=== PATIENT | female | born 1955 | race African-American/Black ===

== ENCOUNTER 2018-10-27 12:12 | Inpatient (IN) ==
[2018-10-27 13:11] LABS: Basophils % 0.5 % (0.0-0.8); Eosinophils # 0.1 10*3/uL (0.0-0.87); Eosinophils % 0.9 % (0.00-10.9); Hematocrit 41.6 VOL% (35.7-47.0); Hemoglobin 13.2 GM/DL (12.0-16.0); Immature Granulocytes % 0.4 %; Immature Granulocytes Absolute 0.02 #; Lymphocytes # 1.8 10*3/uL (1.4-4.0); Lymphocytes % 31.7 % (21.3-54.2); Mean Corpuscular HGB Conc 31.7 GM/DL (32-36); Mean Corpuscular Hemoglobin 29 PG (27-34); Mean Corpuscular Volume 92.2 FL (87-102); Mean Platelet Volume 12.6 FL (9.6-12.0); Monocytes # 0.2 10*3/uL (0.11-0.8); Monocytes % 4.2 % (1.7-12.7); Neutrophils # 3.5 10*3/uL (1.4-7.4); Neutrophils % 62.3 % (38.7-73.9); Platelet Count 180 T/CUMM (130-400); Red Blood Count 4.51 MC/CUMM (3.8-5.5); Red Cell Distribution Width 13.7 % (9.3-17.3); White Blood Count 5.7 T/CUMM (4-12)
[2018-10-27 13:24] LABS: PT Patient Result 10.7 SECS; Partial Thromboplastin Time 24.9 SECS (0-40)
[2018-10-27] MEDS ORDERED: PROMETHAZINE 25 MG TABLET PO PRN (13:33)
[2018-10-27] MEDS ORDERED: POTASSIUM CHLORIDE 20 MEQ TABLET PO PRN (13:33)
[2018-10-27] MEDS ORDERED: DOCUSATE SODIUM 100 MG CAPSULE PO PRN (13:33)
[2018-10-27] MEDS ORDERED: guaiFENesin/DM ER 600-30 MG TABLET PO PRN (13:33)
[2018-10-27] MEDS ORDERED: MAGNESIUM SULF RIDER 4 GM in PREMIX 1 EACH IV PRN (13:33)
[2018-10-27] MEDS ORDERED: MAGNESIUM SULF RIDER 2 GM in PREMIX 1 EACH IV PRN (13:33)
[2018-10-27] MEDS ORDERED: BISACODYL 5 MG TABLET PO PRN (13:33)
[2018-10-27] MEDS ORDERED: ONDANSETRON 4 MG/2 ML VIAL IV PRN (13:33)
[2018-10-27 13:41] LABS: Alanine Aminotransferase 33 U/L (13-56); Albumin 3.5 G/DL (3.4-5.0); Alkaline Phosphatase 102 U/L (45-117); Aspartate Amino Transferase 27 U/L (0-37); Blood Urea Nitrogen 14 MG/DL (7-18); Calcium 8.7 MG/DL (8.5-10.1); Glucose 87 MG/DL (74-106); Osmolality,Calculated 280.3 MOS/KG (273-304); Potassium 3.9 MMOL/L (3.5-5.1); Sodium 141 MMOL/L (136-145); Total Protein 7.7 G/DL (6.4-8.3); Troponin I < 0.015 NG/ML (0.00-0.045)
[2018-10-27] MEDS ORDERED: CARVEDILOL 6.25 MG TABLET PO SCH (21:00)
[2018-10-27] MEDS: CARVEDILOL 25 MG TABLET PO SCH (21:32)
[2018-10-28 04:11] LABS: Basophils % 0.6 % (0.0-0.8); Eosinophils # 0.1 10*3/uL (0.0-0.87); Eosinophils % 1.5 % (0.00-10.9); Immature Granulocytes % 0.2 %; Immature Granulocytes Absolute 0.01 #; Lymphocytes # 2.6 10*3/uL (1.4-4.0); Lymphocytes % 47.4 % (21.3-54.2); Mean Corpuscular HGB Conc 31.6 GM/DL (32-36); Mean Corpuscular Hemoglobin 29 PG (27-34); Mean Corpuscular Volume 91.8 FL (87-102); Mean Platelet Volume 12.9 FL (9.6-12.0); Monocytes # 0.4 10*3/uL (0.11-0.8); Monocytes % 7.7 % (1.7-12.7); Neutrophils # 2.3 10*3/uL (1.4-7.4); Neutrophils % 42.6 % (38.7-73.9); Platelet Count 183 T/CUMM (130-400); Red Blood Count 4.14 MC/CUMM (3.8-5.5); Red Cell Distribution Width 13.6 % (9.3-17.3); White Blood Count 5.4 T/CUMM (4-12)
[2018-10-28 04:33] LABS: Alanine Aminotransferase 25 U/L (13-56); Albumin 3.3 G/DL (3.4-5.0); Alkaline Phosphatase 92 U/L (45-117); Aspartate Amino Transferase 17 U/L (0-37); Bilirubin,Total < 0.39 MG/DL (0.2-1.0); Blood Urea Nitrogen 18 MG/DL (7-18); Calcium 8.5 MG/DL (8.5-10.1); Glucose 85 MG/DL (74-106); Osmolality,Calculated 283.1 MOS/KG (273-304); Sodium 142 MMOL/L (136-145); Total Protein 6.4 G/DL (6.4-8.3)
[2018-10-28] MEDS ORDERED: LISINOPRIL 20 MG TABLET PO SCH (09:00)
[2018-10-28] MEDS: ASPIRIN EC 81 MG TABLET PO SCH (09:29)
[2018-10-28] MEDS: LISINOPRIL 20 MG TABLET PO SCH ×2 (09:29→20:54)
[2018-10-28] MEDS: PANTOPRAZOLE 40 MG TABLET PO SCH (09:29)
[2018-10-28] MEDS: CARVEDILOL 25 MG TABLET PO SCH ×2 (09:29→20:54)
[2018-10-28] MEDS: ROSUVASTATIN 10 MG TABLET PO SCH (09:29)
[2018-10-28] MEDS: ZALEPLON 5 MG CAPSULE PO PRN (20:54)
[2018-10-29 04:43] LABS: Calcium 8.5 MG/DL (8.5-10.1); Osmolality,Calculated 283.1 MOS/KG (273-304)
[2018-10-29] MEDS: LISINOPRIL 20 MG TABLET PO SCH ×2 (09:41→20:06)
[2018-10-29] MEDS: ASPIRIN EC 81 MG TABLET PO SCH (09:41)
[2018-10-29] MEDS: ROSUVASTATIN 10 MG TABLET PO SCH (09:41)
[2018-10-29] MEDS: PANTOPRAZOLE 40 MG TABLET PO SCH (09:41)
[2018-10-29] MEDS: CARVEDILOL 25 MG TABLET PO SCH ×2 (09:41→20:06)
[2018-10-29] MEDS: ZALEPLON 5 MG CAPSULE PO PRN (22:17)
[2018-10-30 04:43] LABS: Calcium 8.8 MG/DL (8.5-10.1); Osmolality,Calculated 280.3 MOS/KG (273-304)
[2018-10-30] MEDS: LISINOPRIL 20 MG TABLET PO SCH ×2 (09:16→21:02)
[2018-10-30] MEDS: ROSUVASTATIN 10 MG TABLET PO SCH (09:16)
[2018-10-30] MEDS: ASPIRIN EC 81 MG TABLET PO SCH (09:16)
[2018-10-30] MEDS: CARVEDILOL 25 MG TABLET PO SCH ×2 (09:16→21:02)
[2018-10-30] MEDS: amLODIPine 5 MG TABLET PO SCH (09:16)
[2018-10-30] MEDS: PANTOPRAZOLE 40 MG TABLET PO SCH (09:16)
[2018-10-30] MEDS ORDERED: DIAZEPAM 5 MG TABLET PO ONE (09:30)
[2018-10-30] MEDS ORDERED: MAGNESIUM SULF RIDER 2 GM in PREMIX 1 EACH IV PRN (09:30)
[2018-10-30] MEDS ORDERED: diphenhydrAMINE CAP 25 MG CAPSULE PO ONE (09:30)
[2018-10-30] MEDS ORDERED: POTASSIUM CHLORIDE RIDER 10 MEQ in PREMIX 1 EACH IV PRN (09:30)
[2018-10-30] MEDS ORDERED: MIDAZOLAM 2 MG/2 ML VIAL ONE (14:27)
[2018-10-30] MEDS ORDERED: fentaNYL 100 MCG/2 ML VIAL ONE (14:27)
[2018-10-30] MEDS ORDERED: LIDOCAINE 1% 20 ML VIAL ONE (14:27)
[2018-10-30] MEDS ORDERED: NIFEdipine 10 MG CAPSULE PO ONE (14:42)
[2018-10-30] MEDS ORDERED: HEPARIN 5,000 UNIT/1 ML VIAL ONE (14:43)
[2018-10-30] MEDS: SODIUM CHLORIDE 0.45% 1,000 ML IV SCH ×2 (17:29→21:02)
[2018-10-30] MEDS: diphenhydrAMINE CAP 25 MG CAPSULE PO PRN (23:16)
[2018-10-31 05:00] LABS: Basophils % 0.5 % (0.0-0.8); Eosinophils % 0.7 % (0.00-10.9); Hematocrit 39.1 VOL% (35.7-47.0); Hemoglobin 12.4 GM/DL (12.0-16.0); Immature Granulocytes % 0.2 %; Immature Granulocytes Absolute 0.01 #; Lymphocytes # 2.5 10*3/uL (1.4-4.0); Lymphocytes % 42.5 % (21.3-54.2); Mean Corpuscular HGB Conc 31.7 GM/DL (32-36); Mean Corpuscular Hemoglobin 29 PG (27-34); Mean Corpuscular Volume 91.4 FL (87-102); Mean Platelet Volume 12.7 FL (9.6-12.0); Monocytes # 0.4 10*3/uL (0.11-0.8); Monocytes % 6.2 % (1.7-12.7); Neutrophils % 49.9 % (38.7-73.9); Platelet Count 169 T/CUMM (130-400); Red Blood Count 4.28 MC/CUMM (3.8-5.5); Red Cell Distribution Width 13.8 % (9.3-17.3); White Blood Count 5.9 T/CUMM (4-12)
[2018-10-31] MEDS: SODIUM CHLORIDE 0.45% 1,000 ML IV SCH (05:04)
[2018-10-31 05:18] LABS: Calcium 8.7 MG/DL (8.5-10.1); Osmolality,Calculated 280.3 MOS/KG (273-304); Osmolality,Calculated 282.1 MOS/KG (273-304); Potassium 4.1 MMOL/L (3.5-5.1); Potassium 4.2 MMOL/L (3.5-5.1)
[2018-10-31] MEDS ORDERED: HEPARIN/NACL 0.9% 2 UNITS/ML 500 ML IV ONE (10:02)
[2018-10-31] MEDS ORDERED: LIDOCAINE 1% 20 ML VIAL ONE (10:02)
[2018-10-31] MEDS ORDERED: ISOPROTERENOL 1 MG/5 ML VIAL IV ONE (10:52)
[2018-10-31] MEDS ORDERED: ACETAMINOPHEN 325 MG TABLET PO PRN (11:38)
[2018-10-31] MEDS ORDERED: HEPARIN 10,000 UNIT/10 ML VIAL ONE (12:10)
[2018-10-31] MEDS ORDERED: MIDAZOLAM 2 MG/2 ML VIAL ONE (12:10)
[2018-10-31] MEDS ORDERED: PROPOFOL 1,000 MG/100 ML BOTTLE IV ONE (12:11)
[2018-10-31] MEDS: ROSUVASTATIN 10 MG TABLET PO SCH (12:28)
[2018-10-31] MEDS: DILTIAZEM CD 120 MG CAPSULE PO SCH (12:28)
[2018-10-31] MEDS: LISINOPRIL 20 MG TABLET PO SCH ×2 (12:28→21:36)
[2018-10-31] MEDS: PANTOPRAZOLE 40 MG TABLET PO SCH (12:28)
[2018-10-31] MEDS: CARVEDILOL 25 MG TABLET PO SCH ×2 (12:28→21:36)
[2018-10-31] MEDS: ASPIRIN EC 81 MG TABLET PO SCH (12:28)
[2018-10-31] MEDS: amLODIPine 5 MG TABLET PO SCH (15:25)
[2018-10-31] MEDS ORDERED: ENOXAPARIN 40 MG/0.4 ML SYRINGE SUBCUT SCH (21:00)
[2018-10-31] MEDS: diphenhydrAMINE CAP 25 MG CAPSULE PO PRN (21:36)
[2018-11-01 04:55] LABS: Basophils % 0.4 % (0.0-0.8); Eosinophils # 0.1 10*3/uL (0.0-0.87); Eosinophils % 1.6 % (0.00-10.9); Hematocrit 38.2 VOL% (35.7-47.0); Hemoglobin 12.1 GM/DL (12.0-16.0); Lymphocytes # 2.6 10*3/uL (1.4-4.0); Lymphocytes % 47.5 % (21.3-54.2); Mean Corpuscular HGB Conc 31.7 GM/DL (32-36); Mean Corpuscular Hemoglobin 29 PG (27-34); Mean Corpuscular Volume 92.9 FL (87-102); Monocytes # 0.4 10*3/uL (0.11-0.8); Monocytes % 6.5 % (1.7-12.7); Neutrophils # 2.4 10*3/uL (1.4-7.4); Platelet Count 150 T/CUMM (130-400); Red Blood Count 4.11 MC/CUMM (3.8-5.5); Red Cell Distribution Width 13.6 % (9.3-17.3); White Blood Count 5.5 T/CUMM (4-12)
[2018-11-01 05:07] LABS: Calcium 8.2 MG/DL (8.5-10.1); Osmolality,Calculated 279.3 MOS/KG (273-304); Potassium 3.7 MMOL/L (3.5-5.1)
[2018-11-01] MEDS: CARVEDILOL 25 MG TABLET PO SCH (10:16)
[2018-11-01] MEDS: ROSUVASTATIN 10 MG TABLET PO SCH (10:16)
[2018-11-01] MEDS: LISINOPRIL 20 MG TABLET PO SCH (10:16)
[2018-11-01] MEDS: DILTIAZEM CD 120 MG CAPSULE PO SCH (10:16)
[2018-11-01] MEDS: PANTOPRAZOLE 40 MG TABLET PO SCH (10:19)
[2018-11-01] MEDS: ASPIRIN EC 81 MG TABLET PO SCH (10:19)
[2018-11-01 12:12] VITALS: BP 141/72
== END 2018-11-01 14:00 | disposition home or self-care (01) | DRG 274 ==
LOC: N.ED 12:12 → N.EDINP 13:33 → N.TELES 14:17
PROVIDERS: ADMIT Internal Medicine Interventional Cardiology; ATTEND Internal Medicine Interventional Cardiology
PROC: CLCCHCL (ICD-10-PCS; 2018-10-30 14:15)

== ENCOUNTER 2020-10-08 10:36 | Inpatient (IN) ==
[2020-10-08] MEDS ORDERED: SODIUM CHLORIDE 0.9% 1,000 ML IV STA (11:22)
[2020-10-08 11:32] LABS: Basophils % 0.6 % (0.0-0.8); Eosinophils # 0.1 10*3/uL (0.0-0.87); Eosinophils % 1.4 % (0.00-10.9); Hematocrit 40.9 VOL% (35.7-47.0); Hemoglobin 13.5 GM/DL (12.0-16.0); Immature Granulocytes % 0.2 %; Immature Granulocytes Absolute 0.01 #; Lymphocytes # 2.1 10*3/uL (1.4-4.0); Lymphocytes % 31.8 % (21.3-54.2); Mean Corpuscular Volume 89.5 FL (87-102); Mean Platelet Volume 12.2 FL (9.6-12.0); Monocytes % 6.7 % (1.7-12.7); Neutrophils % 59.3 % (38.7-73.9); Platelet Count 236 T/CUMM (130-400); Red Blood Count 4.57 MC/CUMM (3.8-5.5); Red Cell Distribution Width 14.2 % (9.3-17.3); White Blood Count 6.5 T/CUMM (4-12)
[2020-10-08 11:48] LABS: Albumin 3.8 G/DL (3.4-5.0); Bilirubin,Total 0.4 MG/DL (0.2-1.0); Calcium 9.2 MG/DL (8.5-10.1); Osmolality,Calculated 280.4 MOS/KG (273-304); Potassium 3.6 MMOL/L (3.5-5.1); Total Protein 7.8 G/DL (6.4-8.3)
[2020-10-08] MEDS ORDERED: ALUMINUM/MAGNES/SIMETH MAX STR 30 ML UDCUP PO PRN (12:02)
[2020-10-08] MEDS ORDERED: BISACODYL 5 MG TABLET PO PRN (12:02)
[2020-10-08] MEDS ORDERED: PROMETHAZINE 25 MG TABLET PO PRN (12:02)
[2020-10-08] MEDS ORDERED: ACETAMINOPHEN 325 MG TABLET PO PRN (12:02)
[2020-10-08] MEDS ORDERED: guaiFENesin/DM ER 600-30 MG TABLET PO PRN (12:02)
[2020-10-08] MEDS ORDERED: diphenhydrAMINE CAP 25 MG CAPSULE PO PRN (12:02)
[2020-10-08] MEDS ORDERED: MAGNESIUM SULF RIDER 2 GM in PREMIX 1 EACH IV PRN (12:02)
[2020-10-08] MEDS ORDERED: POTASSIUM CHLORIDE 20 MEQ TABLET PO PRN (12:02)
[2020-10-08] MEDS ORDERED: MAGNESIUM SULF RIDER 4 GM in PREMIX 1 EACH IV PRN (12:02)
[2020-10-08] MEDS ORDERED: ONDANSETRON 4 MG/2 ML VIAL IV PRN (12:02)
[2020-10-08] MEDS ORDERED: ZALEPLON 5 MG CAPSULE PO PRN (12:02)
[2020-10-08] MEDS ORDERED: DOCUSATE SODIUM 100 MG CAPSULE PO PRN (12:02)
[2020-10-08] MEDS ORDERED: SOTALOL 80 MG TABLET PO STA (12:05)
[2020-10-08 12:07] LABS: Bacteria,Urine Occasional /HPF (Few); Bilirubin,Urine Negative (Negative); Blood, Urine Small mg/dL (Negative); Glucose,Urine (UA) Negative (Negative); Hyaline Casts,Urine 3 /LPF (0-3); Ketones,Urine Negative (Negative); Mucus,Urine Occasional /LPF (Occasional); Nitrite,Urine Negative (Negative); Protein,Urine Negative; RBC,Urine 3 /HPF (0-4); Squamous Epithelial Cell,Urine Moderate /HPF (0-10); Urine Appearance Slightly Hazy (Clear); Urine Color Yellow (Yellow); Urine Urobilinogen < 2.0 EU/DL (0.2-1.0); WBC,Urine 3 /HPF (0-6)
[2020-10-08 12:31] LABS: Barbiturates Screen,Urine Negative (Negative); Benzodiazepines Screen,Urine Negative (Negative); Cannabinoid Screen,Urine Negative (Negative); Opiate Screen,Urine Negative (Negative); Phencyclidine Screen,Urine Negative (Negative)
[2020-10-08] MEDS ORDERED: POTASSIUM CHLORIDE 20 MEQ TABLET PO STA (12:46)
[2020-10-08] MEDS: ENOXAPARIN 40 MG/0.4 ML SYRINGE SUBCUT SCH (13:30)
[2020-10-08] MEDS: ROSUVASTATIN 10 MG TABLET PO SCH (17:45)
[2020-10-08] MEDS: traZODone 50 MG TABLET PO SCH (21:49)
[2020-10-08] MEDS: SOTALOL 80 MG TABLET PO SCH (22:42)
[2020-10-09 05:11] LABS: Basophils % 0.7 % (0.0-0.8); Eosinophils # 0.1 10*3/uL (0.0-0.87); Eosinophils % 2.6 % (0.00-10.9); Hematocrit 35.4 VOL% (35.7-47.0); Hemoglobin 11.6 GM/DL (12.0-16.0); Immature Granulocytes % 0.2 %; Immature Granulocytes Absolute 0.01 #; Lymphocytes # 2.1 10*3/uL (1.4-4.0); Lymphocytes % 47.9 % (21.3-54.2); Mean Corpuscular HGB Conc 32.8 GM/DL (32-36); Mean Corpuscular Volume 89.8 FL (87-102); Mean Platelet Volume 11.8 FL (9.6-12.0); Monocytes % 8.1 % (1.7-12.7); Neutrophils % 40.5 % (38.7-73.9); Platelet Count 167 T/CUMM (130-400); Red Blood Count 3.94 MC/CUMM (3.8-5.5); Red Cell Distribution Width 14.1 % (9.3-17.3); White Blood Count 4.3 T/CUMM (4-12)
[2020-10-09 05:28] LABS: Calcium 8.3 MG/DL (8.5-10.1); Potassium 3.7 MMOL/L (3.5-5.1)
[2020-10-09] MEDS: SOTALOL 80 MG TABLET PO SCH (09:53)
[2020-10-09] MEDS: ASPIRIN EC 81 MG TABLET PO SCH (09:53)
[2020-10-09] MEDS: PANTOPRAZOLE 40 MG TABLET PO SCH (09:54)
[2020-10-09] MEDS: ENOXAPARIN 40 MG/0.4 ML SYRINGE SUBCUT SCH (13:08)
[2020-10-09] MEDS: ROSUVASTATIN 10 MG TABLET PO SCH (17:59)
[2020-10-09] MEDS: traZODone 50 MG TABLET PO SCH (20:40)
[2020-10-10] MEDS: SOTALOL 80 MG TABLET PO SCH ×2 (00:08→10:10)
[2020-10-10 08:00] VITALS: BP 144/73
[2020-10-10 08:36] LABS: Calcium 9.1 MG/DL (8.5-10.1); Osmolality,Calculated 281.1 MOS/KG (273-304); Potassium 4.9 MMOL/L (3.5-5.1)
[2020-10-10] MEDS: ASPIRIN EC 81 MG TABLET PO SCH (10:10)
[2020-10-10] MEDS: PANTOPRAZOLE 40 MG TABLET PO SCH (10:10)
== END 2020-10-10 11:45 | disposition home or self-care (01) | DRG 312 ==
LOC: N.ED 10:36 → N.EDINP 10:36 → N.TELEN 14:45
PROVIDERS: ADMIT Internal Medicine Cardiovascular Disease; ATTEND Internal Medicine Cardiovascular Disease

== ENCOUNTER 2021-11-12 19:32 | Inpatient (IN) ==
[2021-11-12] MEDS ORDERED: FUROSEMIDE 100 MG/10 ML VIAL IV STA (19:59)
[2021-11-12] MEDS ORDERED: NITROGLYCERIN 2% OINT 1 INCH/GM PACK TOP STA (19:59)
[2021-11-12] MEDS ORDERED: MORPHINE 2 MG/1 ML SYRINGE IV STA (19:59)
[2021-11-12] MEDS ORDERED: ALBUTEROL/IPRATROPIUM 3 ML NEB RESP TX STA (19:59)
[2021-11-12] MEDS ORDERED: ASPIRIN 325 MG TABLET PO STA (19:59)
[2021-11-12] MEDS ORDERED: ONDANSETRON 4 MG/2 ML VIAL IV STA (19:59)
[2021-11-12] MEDS ORDERED: hydrALAZINE 20 MG/1 ML VIAL IV STA (20:01)
[2021-11-12 20:19] LABS: Basophils # 0.1 10*3/uL (0.0-0.2); Basophils % 0.6 % (0.0-0.8); Eosinophils # 0.2 10*3/uL (0.0-0.87); Eosinophils % 1.3 % (0.00-10.9); Hematocrit 44.6 VOL% (35.7-47.0); Immature Granulocytes % 0.3 %; Immature Granulocytes Absolute 0.04 #; Lymphocytes # 6.1 10*3/uL (1.4-4.0); Mean Corpuscular HGB Conc 29.1 GM/DL (32-36); Mean Corpuscular Volume 92.9 FL (87-102); Mean Platelet Volume 12.9 FL (9.6-12.0); Monocytes % 5.2 % (1.7-12.7); Neutrophils % 43.6 % (38.7-73.9); Platelet Count 208 T/CUMM (130-400); Red Cell Distribution Width 14.5 % (9.3-17.3); White Blood Count 12.5 T/CUMM (4-12)
[2021-11-12] MEDS ORDERED: methylPREDNISolone SOD SUC 125 MG/2 ML VIAL IV STA (20:25)
[2021-11-12 20:33] LABS: INR 1.1; PT Patient Result 12.4 SECS (10.5-12.0); Partial Thromboplastin Time 24.5 SECS (23.8-32.1)
[2021-11-12 20:44] LABS: Albumin 3.7 G/DL (3.4-5.0); Bilirubin,Total 0.4 MG/DL (0.20-1.00); Calcium 8.9 MG/DL (8.5-10.1); Osmolality,Calculated 286.4 MOS/KG (273-304); Potassium 4.1 MMOL/L (3.5-5.1); Total Protein 6.8 G/DL (6.4-8.2)
[2021-11-12] MEDS ORDERED: PIPERACILLIN/TAZOBACTAM 3,375 MG in SODIUM CHLORIDE 0.9% 100 ML IV STA (22:15)
[2021-11-12] MEDS ORDERED: METOPROLOL SUCCINATE XL 25 MG TABLET PO ONE (22:36)
[2021-11-12] MEDS ORDERED: METOPROLOL TARTRATE 25 MG TABLET PO STA (22:37)
[2021-11-12] MEDS ORDERED: ONDANSETRON 4 MG/2 ML VIAL IV PRN (23:34)
[2021-11-12] MEDS ORDERED: ACETAMINOPHEN 325 MG TABLET PO PRN (23:34)
[2021-11-12] MEDS ORDERED: guaiFENesin/DM ER 600-30 MG TABLET PO PRN (23:34)
[2021-11-12] MEDS ORDERED: NICOTINE 21 MG/24 HR PATCH TRANSDERM PRN (23:34)
[2021-11-12] MEDS ORDERED: MORPHINE 2 MG/1 ML SYRINGE IV PRN (23:34)
[2021-11-12] MEDS ORDERED: ZALEPLON 5 MG CAPSULE PO PRN (23:34)
[2021-11-12] MEDS ORDERED: diphenhydrAMINE CAP 25 MG CAPSULE PO PRN (23:34)
[2021-11-12] MEDS ORDERED: DOCUSATE SODIUM 100 MG CAPSULE PO PRN (23:34)
[2021-11-12] MEDS ORDERED: hydrALAZINE 20 MG/1 ML VIAL IV PRN (23:34)
[2021-11-12] MEDS ORDERED: GLUCAGON 1 MG VIAL IM PRN (23:34)
[2021-11-12] MEDS ORDERED: DEXTROSE 10% 250 ML BAG IV PRN (23:53)
[2021-11-13] MEDS: FUROSEMIDE 100 MG/10 ML VIAL IV SCH ×2 (00:01→11:26)
[2021-11-13] MEDS: HEPARIN 5,000 UNIT/1 ML VIAL SUBCUT SCH ×3 (00:01→13:33)
[2021-11-13] MEDS: VANCOMYCIN INJ 1,250 MG in SODIUM CHLORIDE 0.9% 250 ML IV SCH ×2 (04:03→16:23)
[2021-11-13] MEDS: PIPERACILLIN/TAZOBACTAM 3,375 MG in SODIUM CHLORIDE 0.9% 100 ML IV SCH ×3 (05:08→22:46)
[2021-11-13] MEDS ORDERED: AMIODARONE INJ 150 MG in DEXTROSE 5% 100 ML IV ONE (06:06)
[2021-11-13] MEDS ORDERED: AMIODARONE INJ 450 MG in DEXTROSE 5% 241 ML IV SCH (06:30)
[2021-11-13 07:12] LABS: Basophils % 0.2 % (0.0-0.8); Eosinophils % 0.2 % (0.00-10.9); Hematocrit 40.9 VOL% (35.7-47.0); Hemoglobin 12.7 GM/DL (12.0-16.0); Immature Granulocytes % 0.4 %; Immature Granulocytes Absolute 0.04 #; Lymphocytes % 19.2 % (21.3-54.2); Mean Corpuscular HGB Conc 31.1 GM/DL (32-36); Mean Corpuscular Volume 87.8 FL (87-102); Mean Platelet Volume 12.3 FL (9.6-12.0); Monocytes % 6.2 % (1.7-12.7); Neutrophils % 73.8 % (38.7-73.9); Platelet Count 202 T/CUMM (130-400); Red Blood Count 4.66 MC/CUMM (3.8-5.5); Red Cell Distribution Width 14.6 % (9.3-17.3); White Blood Count 10.4 T/CUMM (4-12)
[2021-11-13 07:27] LABS: Calcium 8.8 MG/DL (8.5-10.1); Osmolality,Calculated 275.7 MOS/KG (273-304); Potassium 3.5 MMOL/L (3.5-5.1)
[2021-11-13] MEDS ORDERED: SOTALOL 80 MG TABLET PO SCH ×2 (09:00→12:39)
[2021-11-13] MEDS: ASPIRIN EC 81 MG TABLET PO SCH (10:32)
[2021-11-13] MEDS: PANTOPRAZOLE 40 MG TABLET PO SCH (10:32)
[2021-11-13] MEDS ORDERED: SOTALOL 80 MG TABLET PO ONE (13:13)
[2021-11-13] MEDS ORDERED: SACUBITRIL/VALSARTAN 49-51 MG TABLET PO ONE (13:50)
[2021-11-13] MEDS ORDERED: ROSUVASTATIN 10 MG TABLET PO SCH (17:00)
[2021-11-13] MEDS: ASCORBIC ACID 500 MG TABLET PO SCH (20:27)
[2021-11-13] MEDS: APIXABAN 2.5 MG TABLET PO SCH (20:27)
[2021-11-13] MEDS: SOTALOL 80 MG TABLET PO SCH (20:27)
[2021-11-13] MEDS: SACUBITRIL/VALSARTAN 49-51 MG TABLET PO SCH (20:30)
[2021-11-14] MEDS: VANCOMYCIN INJ 1,250 MG in SODIUM CHLORIDE 0.9% 250 ML IV SCH (03:55)
[2021-11-14 06:19] LABS: Albumin 3.2 G/DL (3.4-5.0); Calcium 8.9 MG/DL (8.5-10.1); Osmolality,Calculated 279.3 MOS/KG (273-304); Potassium 3.4 MMOL/L (3.5-5.1); Total Protein 6.9 G/DL (6.4-8.2)
[2021-11-14] MEDS: FUROSEMIDE 100 MG/10 ML VIAL IV SCH (06:45)
[2021-11-14] MEDS: PIPERACILLIN/TAZOBACTAM 3,375 MG in SODIUM CHLORIDE 0.9% 100 ML IV SCH (06:50)
[2021-11-14] MEDS ORDERED: ZINC SULFATE 220 MG CAPSULE PO SCH (09:00)
[2021-11-14] MEDS ORDERED: CHOLECALCIFEROL 1,000 UNIT TABLET PO SCH (09:00)
[2021-11-14] MEDS: ASPIRIN EC 81 MG TABLET PO SCH (09:51)
[2021-11-14] MEDS: SOTALOL 80 MG TABLET PO SCH (09:51)
[2021-11-14] MEDS: ASCORBIC ACID 500 MG TABLET PO SCH (09:52)
[2021-11-14] MEDS: APIXABAN 2.5 MG TABLET PO SCH (09:52)
[2021-11-14] MEDS: PANTOPRAZOLE 40 MG TABLET PO SCH (09:52)
[2021-11-14] MEDS: SACUBITRIL/VALSARTAN 49-51 MG TABLET PO SCH (09:52)
[2021-11-14] MEDS ORDERED: POTASSIUM CHLORIDE 20 MEQ TABLET PO ONE (10:16)
[2021-11-14 12:44] VITALS: BP 121/80
== END 2021-11-14 14:40 | disposition home or self-care (01) | DRG 177 ==
LOC: EDBD → EDUNIT# → N.ED 19:32 → N.EDINP 23:34 → SUATTDRO 23:34 → N.5E 11-13 01:14 → N.TELES 11-13 05:56
PROVIDERS: ADMIT Internal Medicine; ATTEND Emergency Medicine

== ENCOUNTER 2021-12-07 18:40 | Inpatient (IN) ==
[2021-12-07] MEDS ORDERED: ADENOSINE 6 MG/2 ML VIAL IV STA ×2 (19:25→19:28)
[2021-12-07] MEDS ORDERED: ADENOSINE 6 MG/2 ML VIAL ONE (19:26)
[2021-12-07] MEDS ORDERED: MIDAZOLAM 2 MG/2 ML VIAL IV STA (19:30)
[2021-12-07] MEDS ORDERED: MIDAZOLAM 10 MG/2 ML VIAL ONE (19:32)
[2021-12-07] MEDS ORDERED: DILTIAZEM 25 MG/5 ML VIAL IV ONE ×2 (19:39→19:53)
[2021-12-07] MEDS ORDERED: DILTIAZEM 50 MG/10 ML VIAL IV STA (19:40)
[2021-12-07] MEDS ORDERED: METOPROLOL TARTRATE 5 MG/5 ML VIAL IV ONE (19:40)
[2021-12-07] MEDS ORDERED: AMIODARONE 150 MG/3 ML VIAL ONE (19:40)
[2021-12-07 19:41] LABS: Basophils # 0.1 10*3/uL (0.0-0.2); Basophils % 0.5 % (0.0-0.8); Eosinophils # 0.1 10*3/uL (0.0-0.87); Eosinophils % 1.2 % (0.00-10.9); Hematocrit 46.8 VOL% (35.7-47.0); Hemoglobin 14.7 GM/DL (12.0-16.0); Immature Granulocytes % 0.3 %; Immature Granulocytes Absolute 0.03 #; Lymphocytes # 5.1 10*3/uL (1.4-4.0); Lymphocytes % 49.6 % (21.3-54.2); Mean Corpuscular HGB Conc 31.4 GM/DL (32-36); Mean Corpuscular Volume 88.6 FL (87-102); Mean Platelet Volume 13.3 FL (9.6-12.0); Monocytes % 7.1 % (1.7-12.7); Neutrophils % 41.3 % (38.7-73.9); Platelet Count 221 T/CUMM (130-400); Red Blood Count 5.28 MC/CUMM (3.8-5.5); Red Cell Distribution Width 15.3 % (9.3-17.3); White Blood Count 10.3 T/CUMM (4-12)
[2021-12-07] MEDS ORDERED: DILTIAZEM 100 MG VIAL.ADD IV ONE (19:49)
[2021-12-07] MEDS: DILTIAZEM INJ 100 MG in SODIUM CHLORIDE 0.9% 100 ML IV SCH (20:00)
[2021-12-07 20:05] LABS: Albumin 4.4 G/DL (3.4-5.0); Bilirubin,Total 0.7 MG/DL (0.20-1.00); Calcium 9.5 MG/DL (8.5-10.1); Osmolality,Calculated 277.5 MOS/KG (273-304); Potassium 3.4 MMOL/L (3.5-5.1); Total Protein 7.8 G/DL (6.4-8.2)
[2021-12-07] MEDS ORDERED: ENOXAPARIN 100 MG/ML SYRINGE SUBCUT STA (20:19)
[2021-12-07 20:41] LABS: Lymphocytes 50 % (20-55); Segmented Neutrophils 43 % (50-85); Total Cells Counted 100
[2021-12-07 20:46] LABS: Burr Cells Slight; Microcytosis Slight; Platelet Estimate Normal
[2021-12-07] MEDS ORDERED: MAGNESIUM SULF RIDER 4 GM/100 ML PREMIX IV PRN (21:33)
[2021-12-07] MEDS ORDERED: MAGNESIUM SULF RIDER 2 GM/50 ML PREMIX IV PRN (21:33)
[2021-12-07] MEDS ORDERED: ONDANSETRON 4 MG/2 ML VIAL IV PRN (21:33)
[2021-12-07] MEDS ORDERED: MORPHINE 4 MG/1 ML VIAL IV PRN (21:37)
[2021-12-07] MEDS: SODIUM CHLORIDE 0.9% 1,000 ML IV SCH (23:55)
[2021-12-08 03:46] LABS: Basophils % 0.5 % (0.0-0.8); Eosinophils # 0.1 10*3/uL (0.0-0.87); Eosinophils % 0.9 % (0.00-10.9); Hematocrit 41.2 VOL% (35.7-47.0); Hemoglobin 12.9 GM/DL (12.0-16.0); Immature Granulocytes % 0.3 %; Immature Granulocytes Absolute 0.02 #; Lymphocytes # 2.1 10*3/uL (1.4-4.0); Lymphocytes % 37.4 % (21.3-54.2); Mean Corpuscular HGB Conc 31.3 GM/DL (32-36); Mean Corpuscular Volume 87.1 FL (87-102); Mean Platelet Volume 12.1 FL (9.6-12.0); Monocytes % 7.9 % (1.7-12.7); Platelet Count 166 T/CUMM (130-400); Red Blood Count 4.73 MC/CUMM (3.8-5.5); Red Cell Distribution Width 15.1 % (9.3-17.3); White Blood Count 5.7 T/CUMM (4-12)
[2021-12-08 04:19] LABS: Albumin 3.4 G/DL (3.4-5.0); Bilirubin,Total 0.6 MG/DL (0.20-1.00); Calcium 8.7 MG/DL (8.5-10.1); Osmolality,Calculated 280.1 MOS/KG (273-304); Potassium 3.5 MMOL/L (3.5-5.1); Risk Ratio 2.02; Thyroid Stimulating Hormone 4.02 uIU/ml (0.358-3.74); Total Protein 6.8 G/DL (6.4-8.2); VLDL Cholesterol 10.2 MG/DL
[2021-12-08] MEDS ORDERED: POTASSIUM CHLORIDE 20 MEQ TABLET PO PRN (05:46)
[2021-12-08] MEDS ORDERED: MAGNESIUM SULF RIDER 2 GM/50 ML PREMIX IV ONE (06:28)
[2021-12-08] MEDS: PANTOPRAZOLE 40 MG TABLET PO SCH (08:18)
[2021-12-08] MEDS ORDERED: POTASSIUM CHLORIDE 20 MEQ TABLET PO ONE (09:16)
[2021-12-08] MEDS ORDERED: PYRIDOXINE 100 MG TABLET PO SCH (09:30)
[2021-12-08] MEDS ORDERED: SACUBITRIL/VALSARTAN 49-51 MG TABLET PO ONE (09:42)
[2021-12-08] MEDS ORDERED: DILTIAZEM 50 MG/10 ML VIAL IV ONE ×2 (09:50→09:53)
[2021-12-08] MEDS: METOPROLOL TARTRATE 50 MG TABLET PO SCH ×2 (09:56→21:02)
[2021-12-08] MEDS: ASPIRIN EC 81 MG TABLET PO SCH (09:57)
[2021-12-08] MEDS: ASCORBIC ACID 500 MG TABLET PO SCH ×2 (09:57→20:02)
[2021-12-08] MEDS: APIXABAN 2.5 MG TABLET PO SCH ×2 (09:57→20:02)
[2021-12-08] MEDS: FUROSEMIDE 40 MG TABLET PO SCH (09:57)
[2021-12-08] MEDS: VERAPAMIL SR 120 MG TABLET PO SCH ×2 (09:57→20:02)
[2021-12-08] MEDS: CHOLECALCIFEROL 1,000 UNIT TABLET PO SCH (09:57)
[2021-12-08] MEDS ORDERED: PYRIDOXINE 50 MG TABLET PO ONE (10:16)
[2021-12-08] MEDS: ROSUVASTATIN 10 MG TABLET PO SCH (17:10)
[2021-12-08] MEDS ORDERED: SACUBITRIL/VALSARTAN 49-51 MG TABLET PO SCH (21:00)
[2021-12-08] MEDS: DILTIAZEM INJ 100 MG in SODIUM CHLORIDE 0.9% 100 ML IV SCH (22:31)
[2021-12-08] MEDS: SODIUM CHLORIDE 0.9% 1,000 ML IV SCH (22:31)
[2021-12-09 05:02] LABS: Basophils % 0.7 % (0.0-0.8); Eosinophils # 0.2 10*3/uL (0.0-0.87); Eosinophils % 3.5 % (0.00-10.9); Hematocrit 42.4 VOL% (35.7-47.0); Immature Granulocytes % 0.2 %; Immature Granulocytes Absolute 0.01 #; Lymphocytes # 2.4 10*3/uL (1.4-4.0); Lymphocytes % 52.2 % (21.3-54.2); Mean Corpuscular HGB Conc 30.7 GM/DL (32-36); Mean Corpuscular Volume 87.8 FL (87-102); Mean Platelet Volume 12.6 FL (9.6-12.0); Monocytes % 7.6 % (1.7-12.7); Neutrophils % 35.8 % (38.7-73.9); Platelet Count 182 T/CUMM (130-400); Red Blood Count 4.83 MC/CUMM (3.8-5.5); Red Cell Distribution Width 15.2 % (9.3-17.3); White Blood Count 4.6 T/CUMM (4-12)
[2021-12-09 05:21] LABS: Calcium 8.8 MG/DL (8.5-10.1); Osmolality,Calculated 276.4 MOS/KG (273-304); Potassium 3.6 MMOL/L (3.5-5.1)
[2021-12-09 05:38] LABS: Eosinophils 1 % (0-10); Lymphocytes 53 % (20-55); Platelet Estimate Normal; Segmented Neutrophils 38 % (50-85); Total Cells Counted 100
[2021-12-09 05:39] LABS: Anisocytosis 1+; Macrocytosis Slight
[2021-12-09] MEDS: SODIUM CHLORIDE 0.9% 1,000 ML IV SCH ×2 (07:30→22:40)
[2021-12-09] MEDS: POTASSIUM CHLORIDE 20 MEQ TABLET PO SCH (09:29)
[2021-12-09] MEDS: VERAPAMIL SR 120 MG TABLET PO SCH ×2 (09:29→22:38)
[2021-12-09] MEDS: ASCORBIC ACID 500 MG TABLET PO SCH ×2 (09:29→22:38)
[2021-12-09] MEDS: SACUBITRIL/VALSARTAN 49-51 MG TABLET PO SCH ×2 (09:29→22:38)
[2021-12-09] MEDS: FUROSEMIDE 40 MG TABLET PO SCH (09:30)
[2021-12-09] MEDS: ASPIRIN EC 81 MG TABLET PO SCH (09:30)
[2021-12-09] MEDS: CHOLECALCIFEROL 1,000 UNIT TABLET PO SCH (09:30)
[2021-12-09] MEDS: APIXABAN 2.5 MG TABLET PO SCH ×2 (09:30→22:38)
[2021-12-09] MEDS: METOPROLOL TARTRATE 25 MG TABLET PO SCH ×2 (09:30→22:40)
[2021-12-09] MEDS: PANTOPRAZOLE 40 MG TABLET PO SCH (09:30)
[2021-12-09] MEDS: PYRIDOXINE 50 MG TABLET PO SCH (10:11)
[2021-12-09] MEDS: ROSUVASTATIN 10 MG TABLET PO SCH (18:23)
[2021-12-10 04:39] LABS: Basophils % 0.8 % (0.0-0.8); Eosinophils # 0.1 10*3/uL (0.0-0.87); Eosinophils % 2.6 % (0.00-10.9); Hemoglobin 12.8 GM/DL (12.0-16.0); Immature Granulocytes % 0.2 %; Immature Granulocytes Absolute 0.01 #; Lymphocytes # 2.5 10*3/uL (1.4-4.0); Lymphocytes % 51.5 % (21.3-54.2); Mean Corpuscular HGB Conc 31.2 GM/DL (32-36); Mean Corpuscular Volume 87.6 FL (87-102); Mean Platelet Volume 12.4 FL (9.6-12.0); Monocytes % 7.5 % (1.7-12.7); Neutrophils % 37.4 % (38.7-73.9); Platelet Count 185 T/CUMM (130-400); Red Blood Count 4.68 MC/CUMM (3.8-5.5); Red Cell Distribution Width 15.1 % (9.3-17.3); White Blood Count 4.9 T/CUMM (4-12)
[2021-12-10 04:59] LABS: Eosinophils 1 % (0-10); Lymphocytes 46 % (20-55); Osmolality,Calculated 278.4 MOS/KG (273-304); Potassium 3.7 MMOL/L (3.5-5.1); Segmented Neutrophils 45 % (50-85); Total Cells Counted 100
[2021-12-10 05:00] LABS: Hypochromia 1+; Microcytosis Slight; Platelet Estimate Adequate
[2021-12-10 08:18] VITALS: BP 123/72
[2021-12-10] MEDS: ASPIRIN EC 81 MG TABLET PO SCH (08:41)
[2021-12-10] MEDS: ASCORBIC ACID 500 MG TABLET PO SCH (08:41)
[2021-12-10] MEDS: POTASSIUM CHLORIDE 20 MEQ TABLET PO SCH (08:41)
[2021-12-10] MEDS: VERAPAMIL SR 120 MG TABLET PO SCH (08:41)
[2021-12-10] MEDS: CHOLECALCIFEROL 1,000 UNIT TABLET PO SCH (08:41)
[2021-12-10] MEDS: APIXABAN 2.5 MG TABLET PO SCH (08:41)
[2021-12-10] MEDS: PANTOPRAZOLE 40 MG TABLET PO SCH (08:42)
[2021-12-10] MEDS: FUROSEMIDE 40 MG TABLET PO SCH (08:42)
[2021-12-10] MEDS: SACUBITRIL/VALSARTAN 49-51 MG TABLET PO SCH (08:58)
[2021-12-10] MEDS ORDERED: METOPROLOL SUCCINATE XL 25 MG TABLET PO SCH (09:00)
[2021-12-10] MEDS: PYRIDOXINE 50 MG TABLET PO SCH (10:36)
== END 2021-12-10 11:06 | disposition home or self-care (01) | DRG 309 ==
LOC: N.ED 18:40 → N.CC 20:57 → N.TELEN 12-09 15:00
PROVIDERS: ADMIT Internal Medicine Cardiovascular Disease; ATTEND Internal Medicine Cardiovascular Disease

== ENCOUNTER 2021-12-10 16:33 | Observation (INO) ==
[2021-12-10 18:13] LABS: Basophils % 0.5 % (0.0-0.8); Eosinophils # 0.1 10*3/uL (0.0-0.87); Eosinophils % 1.1 % (0.00-10.9); Hematocrit 43.8 VOL% (35.7-47.0); Hemoglobin 13.7 GM/DL (12.0-16.0); Immature Granulocytes % 0.2 %; Immature Granulocytes Absolute 0.01 #; Lymphocytes # 1.6 10*3/uL (1.4-4.0); Mean Corpuscular HGB Conc 31.3 GM/DL (32-36); Mean Corpuscular Volume 88.3 FL (87-102); Mean Platelet Volume 13.1 FL (9.6-12.0); Monocytes % 6.5 % (1.7-12.7); Neutrophils % 54.7 % (38.7-73.9); Platelet Count 186 T/CUMM (130-400); Red Blood Count 4.96 MC/CUMM (3.8-5.5); Red Cell Distribution Width 15.3 % (9.3-17.3); White Blood Count 4.4 T/CUMM (4-12)
[2021-12-10 19:17] LABS: Albumin 3.8 G/DL (3.4-5.0); Bilirubin,Total 0.6 MG/DL (0.20-1.00); Calcium 9.1 MG/DL (8.5-10.1); Osmolality,Calculated 278.3 MOS/KG (273-304); Potassium 3.9 MMOL/L (3.5-5.1); Thyroid Stimulating Hormone 4.29 uIU/ml (0.358-3.74); Total Protein 7.2 G/DL (6.4-8.2)
[2021-12-10] MEDS ORDERED: ONDANSETRON 4 MG/2 ML VIAL IV PRN (20:32)
[2021-12-10] MEDS ORDERED: MAGNESIUM SULF RIDER 2 GM/50 ML PREMIX IV PRN (20:32)
[2021-12-10] MEDS ORDERED: MAGNESIUM SULF RIDER 4 GM/100 ML PREMIX IV PRN (20:32)
[2021-12-10] MEDS ORDERED: POTASSIUM CHLORIDE 20 MEQ TABLET PO PRN (20:32)
[2021-12-10] MEDS ORDERED: SODIUM CHLORIDE 0.9% 1,000 ML IV SCH (20:32)
[2021-12-10] MEDS ORDERED: MORPHINE 4 MG/1 ML VIAL IV PRN (20:36)
[2021-12-10] MEDS ORDERED: VERAPAMIL SR 120 MG TABLET PO SCH (21:00)
[2021-12-10] MEDS: ASCORBIC ACID 500 MG TABLET PO SCH (21:33)
[2021-12-10] MEDS: traZODone 50 MG TABLET PO SCH (21:33)
[2021-12-10] MEDS: ROSUVASTATIN 10 MG TABLET PO SCH (21:34)
[2021-12-10] MEDS: SACUBITRIL/VALSARTAN 49-51 MG TABLET PO SCH (21:34)
[2021-12-10] MEDS: APIXABAN 2.5 MG TABLET PO SCH (21:35)
[2021-12-11] MEDS: ALBUTEROL/IPRATROPIUM 3 ML NEB RESP TX SCH ×4 (01:18→19:20)
[2021-12-11 04:48] LABS: Basophils % 0.9 % (0.0-0.8); Eosinophils # 0.1 10*3/uL (0.0-0.87); Eosinophils % 2.4 % (0.00-10.9); Hematocrit 41.1 VOL% (35.7-47.0); Immature Granulocytes % 0.4 %; Immature Granulocytes Absolute 0.02 #; Lymphocytes % 42.3 % (21.3-54.2); Mean Corpuscular HGB Conc 31.6 GM/DL (32-36); Mean Corpuscular Volume 88.8 FL (87-102); Mean Platelet Volume 12.7 FL (9.6-12.0); Monocytes % 8.5 % (1.7-12.7); Neutrophils % 45.5 % (38.7-73.9); Platelet Count 173 T/CUMM (130-400); Red Blood Count 4.63 MC/CUMM (3.8-5.5); Red Cell Distribution Width 15.3 % (9.3-17.3); White Blood Count 4.7 T/CUMM (4-12)
[2021-12-11 05:15] LABS: Risk Ratio 1.88; VLDL Cholesterol 12.2 MG/DL
[2021-12-11] MEDS: ASCORBIC ACID 500 MG TABLET PO SCH ×2 (09:10→21:11)
[2021-12-11] MEDS: VERAPAMIL SR 180 MG TABLET PO SCH ×2 (09:10→21:10)
[2021-12-11] MEDS: CHOLECALCIFEROL 1,000 UNIT TABLET PO SCH (09:11)
[2021-12-11] MEDS: PANTOPRAZOLE 40 MG TABLET PO SCH (09:11)
[2021-12-11] MEDS: METOPROLOL SUCCINATE XL 25 MG TABLET PO SCH (09:11)
[2021-12-11] MEDS: SACUBITRIL/VALSARTAN 49-51 MG TABLET PO SCH ×2 (09:11→21:10)
[2021-12-11] MEDS: ASPIRIN EC 81 MG TABLET PO SCH (09:12)
[2021-12-11] MEDS: APIXABAN 2.5 MG TABLET PO SCH ×2 (09:12→21:10)
[2021-12-11] MEDS: FUROSEMIDE 40 MG TABLET PO SCH (09:14)
[2021-12-11 10:30] LABS: Calcium 9.6 MG/DL (8.5-10.1); Osmolality,Calculated 279.3 MOS/KG (273-304); Potassium 3.5 MMOL/L (3.5-5.1)
[2021-12-11] MEDS: PYRIDOXINE 50 MG TABLET PO SCH (11:13)
[2021-12-11] MEDS: ROSUVASTATIN 10 MG TABLET PO SCH (21:10)
[2021-12-11] MEDS: traZODone 50 MG TABLET PO SCH (21:10)
[2021-12-12] MEDS: ALBUTEROL/IPRATROPIUM 3 ML NEB RESP TX SCH ×4 (00:27→18:55)
[2021-12-12 04:59] LABS: Basophils % 0.7 % (0.0-0.8); Eosinophils # 0.1 10*3/uL (0.0-0.87); Eosinophils % 1.6 % (0.00-10.9); Hematocrit 39.7 VOL% (35.7-47.0); Hemoglobin 12.3 GM/DL (12.0-16.0); Immature Granulocytes % 0.2 %; Immature Granulocytes Absolute 0.01 #; Mean Platelet Volume 11.7 FL (9.6-12.0); Monocytes % 8.2 % (1.7-12.7); Neutrophils % 44.3 % (38.7-73.9); Platelet Count 173 T/CUMM (130-400); Red Blood Count 4.51 MC/CUMM (3.8-5.5); Red Cell Distribution Width 15.4 % (9.3-17.3); White Blood Count 4.5 T/CUMM (4-12)
[2021-12-12 05:19] LABS: Osmolality,Calculated 283.1 MOS/KG (273-304); Potassium 3.5 MMOL/L (3.5-5.1)
[2021-12-12] MEDS: PYRIDOXINE 50 MG TABLET PO SCH (08:16)
[2021-12-12] MEDS: APIXABAN 2.5 MG TABLET PO SCH ×2 (08:17→20:32)
[2021-12-12] MEDS: SACUBITRIL/VALSARTAN 49-51 MG TABLET PO SCH ×2 (08:17→20:32)
[2021-12-12] MEDS: VERAPAMIL SR 180 MG TABLET PO SCH ×2 (08:17→20:32)
[2021-12-12] MEDS: METOPROLOL SUCCINATE XL 25 MG TABLET PO SCH (08:17)
[2021-12-12] MEDS: CHOLECALCIFEROL 1,000 UNIT TABLET PO SCH (08:17)
[2021-12-12] MEDS: PANTOPRAZOLE 40 MG TABLET PO SCH (08:18)
[2021-12-12] MEDS: ASPIRIN EC 81 MG TABLET PO SCH (08:18)
[2021-12-12] MEDS: ASCORBIC ACID 500 MG TABLET PO SCH ×2 (08:20→20:32)
[2021-12-12] MEDS: FUROSEMIDE 40 MG TABLET PO SCH (10:50)
[2021-12-12] MEDS: traZODone 50 MG TABLET PO SCH (20:32)
[2021-12-12] MEDS: ROSUVASTATIN 10 MG TABLET PO SCH (20:32)
[2021-12-13] MEDS: ALBUTEROL/IPRATROPIUM 3 ML NEB RESP TX SCH ×2 (00:45→08:40)
[2021-12-13 05:36] LABS: Basophils % 0.9 % (0.0-0.8); Eosinophils # 0.1 10*3/uL (0.0-0.87); Eosinophils % 2.1 % (0.00-10.9); Hematocrit 39.9 VOL% (35.7-47.0); Hemoglobin 12.5 GM/DL (12.0-16.0); Immature Granulocytes % 0.2 %; Immature Granulocytes Absolute 0.01 #; Lymphocytes # 1.7 10*3/uL (1.4-4.0); Mean Corpuscular HGB Conc 31.3 GM/DL (32-36); Mean Corpuscular Volume 88.7 FL (87-102); Mean Platelet Volume 12.7 FL (9.6-12.0); Monocytes % 7.5 % (1.7-12.7); Neutrophils % 49.3 % (38.7-73.9); Platelet Count 167 T/CUMM (130-400); Red Cell Distribution Width 15.4 % (9.3-17.3); White Blood Count 4.3 T/CUMM (4-12)
[2021-12-13 05:45] LABS: Potassium 3.9 MMOL/L (3.5-5.1)
[2021-12-13] MEDS: APIXABAN 2.5 MG TABLET PO SCH (09:18)
[2021-12-13] MEDS: SACUBITRIL/VALSARTAN 49-51 MG TABLET PO SCH (09:18)
[2021-12-13] MEDS: FUROSEMIDE 40 MG TABLET PO SCH (09:18)
[2021-12-13] MEDS: ASPIRIN EC 81 MG TABLET PO SCH (09:18)
[2021-12-13] MEDS: VERAPAMIL SR 180 MG TABLET PO SCH (09:18)
[2021-12-13] MEDS: CHOLECALCIFEROL 1,000 UNIT TABLET PO SCH (09:18)
[2021-12-13] MEDS: PANTOPRAZOLE 40 MG TABLET PO SCH (09:19)
[2021-12-13] MEDS: METOPROLOL SUCCINATE XL 25 MG TABLET PO SCH (09:19)
[2021-12-13] MEDS: ASCORBIC ACID 500 MG TABLET PO SCH (09:19)
[2021-12-13] MEDS: PYRIDOXINE 50 MG TABLET PO SCH (09:22)
[2021-12-13 12:35] VITALS: BP 107/74
== END 2021-12-13 15:56 | disposition home or self-care (01) ==
LOC: N.TELES 16:33 → N.ED 16:33 → N.TELES 20:28
PROVIDERS: ADMIT Internal Medicine Cardiovascular Disease; ATTEND Internal Medicine Cardiovascular Disease

== ENCOUNTER 2022-02-08 13:58 | Observation (INO) ==
[2022-02-08 15:19] LABS: Basophils % 0.3 % (0.0-0.8); Eosinophils # 0.1 10*3/uL (0.0-0.87); Hematocrit 40.4 VOL% (35.7-47.0); Hemoglobin 12.9 GM/DL (12.0-16.0); Immature Granulocytes % 0.2 %; Immature Granulocytes Absolute 0.01 #; Lymphocytes # 1.7 10*3/uL (1.4-4.0); Lymphocytes % 27.3 % (21.3-54.2); Mean Corpuscular HGB Conc 31.9 GM/DL (32-36); Mean Platelet Volume 11.5 FL (9.6-12.0); Monocytes # 0.4 10*3/uL (0.11-0.8); Monocytes % 5.9 % (1.7-12.7); Neutrophils % 65.3 % (38.7-73.9); Platelet Count 251 T/CUMM (130-400); Red Blood Count 4.49 MC/CUMM (3.8-5.5); Red Cell Distribution Width 15.8 % (9.3-17.3); White Blood Count 6.3 T/CUMM (4-12)
[2022-02-08] MEDS ORDERED: DILTIAZEM 50 MG/10 ML VIAL IV STA (15:40)
[2022-02-08] MEDS ORDERED: DILTIAZEM 25 MG/5 ML VIAL IV STA (15:42)
[2022-02-08 15:59] LABS: Albumin 3.9 G/DL (3.4-5.0); Bilirubin,Total 0.5 MG/DL (0.20-1.00); Calcium 9.8 MG/DL (8.5-10.1); Osmolality,Calculated 278.3 MOS/KG (273-304); Potassium 3.5 MMOL/L (3.5-5.1); Thyroid Stimulating Hormone 4.2 uIU/ml (0.358-3.74); Total Protein 7.4 G/DL (6.4-8.2)
[2022-02-08] MEDS ORDERED: DILTIAZEM INJ 100 MG in SODIUM CHLORIDE 0.9% 100 ML IV SCH (16:00)
[2022-02-08] MEDS ORDERED: ALUMINUM/MAGNES/SIMETH MAX STR 30 ML UDCUP PO PRN (16:16)
[2022-02-08] MEDS ORDERED: NICOTINE 21 MG/24 HR PATCH TRANSDERM PRN (16:16)
[2022-02-08] MEDS ORDERED: MAGNESIUM SULF RIDER 4 GM/100 ML PREMIX IV PRN (16:16)
[2022-02-08] MEDS ORDERED: ACETAMINOPHEN 325 MG TABLET PO PRN (16:16)
[2022-02-08] MEDS ORDERED: DOCUSATE SODIUM 100 MG CAPSULE PO PRN (16:16)
[2022-02-08] MEDS ORDERED: guaiFENesin/DM ER 600-30 MG TABLET PO PRN (16:16)
[2022-02-08] MEDS ORDERED: ONDANSETRON 4 MG/2 ML VIAL IV PRN (16:16)
[2022-02-08] MEDS ORDERED: MAGNESIUM SULF RIDER 2 GM/50 ML PREMIX IV PRN (16:16)
[2022-02-08] MEDS ORDERED: diphenhydrAMINE CAP 25 MG CAPSULE PO PRN (16:16)
[2022-02-08] MEDS ORDERED: POTASSIUM CHLORIDE 20 MEQ TABLET PO PRN (16:16)
[2022-02-08] MEDS: METOPROLOL SUCCINATE XL 25 MG TABLET PO SCH (18:21)
[2022-02-08] MEDS: APIXABAN 5 MG TABLET PO SCH (20:40)
[2022-02-08] MEDS: VERAPAMIL SR 180 MG TABLET PO SCH (20:40)
[2022-02-08] MEDS: ASCORBIC ACID 500 MG TABLET PO SCH (20:40)
[2022-02-08] MEDS: SACUBITRIL/VALSARTAN 49-51 MG TABLET PO SCH (20:40)
[2022-02-09 05:35] LABS: Basophils % 0.4 % (0.0-0.8); Eosinophils # 0.1 10*3/uL (0.0-0.87); Eosinophils % 1.1 % (0.00-10.9); Hematocrit 38.5 VOL% (35.7-47.0); Hemoglobin 12.4 GM/DL (12.0-16.0); Immature Granulocytes % 0.2 %; Immature Granulocytes Absolute 0.01 #; Lymphocytes # 1.6 10*3/uL (1.4-4.0); Mean Corpuscular HGB Conc 32.2 GM/DL (32-36); Mean Corpuscular Volume 89.1 FL (87-102); Mean Platelet Volume 11.7 FL (9.6-12.0); Monocytes # 0.3 10*3/uL (0.11-0.8); Monocytes % 6.4 % (1.7-12.7); Neutrophils % 57.9 % (38.7-73.9); Platelet Count 242 T/CUMM (130-400); Red Blood Count 4.32 MC/CUMM (3.8-5.5); Red Cell Distribution Width 15.8 % (9.3-17.3); White Blood Count 4.7 T/CUMM (4-12)
[2022-02-09 05:57] LABS: Albumin 3.6 G/DL (3.4-5.0); Bilirubin,Total 0.6 MG/DL (0.20-1.00); Calcium 9.4 MG/DL (8.5-10.1); Osmolality,Calculated 278.3 MOS/KG (273-304); Potassium 3.4 MMOL/L (3.5-5.1); Total Protein 6.8 G/DL (6.4-8.2)
[2022-02-09] MEDS ORDERED: POTASSIUM CHLORIDE 20 MEQ TABLET PO ONE (07:30)
[2022-02-09 08:05] VITALS: BP 129/73
[2022-02-09] MEDS ORDERED: ASPIRIN EC 81 MG TABLET PO SCH (09:00)
[2022-02-09] MEDS ORDERED: AMIODARONE 200 MG TABLET PO SCH (09:00)
[2022-02-09] MEDS ORDERED: SPIRONOLACTONE 25 MG TABLET PO SCH (09:00)
[2022-02-09] MEDS ORDERED: PYRIDOXINE 50 MG TABLET PO SCH (09:00)
[2022-02-09] MEDS ORDERED: PANTOPRAZOLE 40 MG TABLET PO SCH (09:00)
[2022-02-09] MEDS ORDERED: CHOLECALCIFEROL 1,000 UNIT TABLET PO SCH (09:00)
[2022-02-09] MEDS: SACUBITRIL/VALSARTAN 49-51 MG TABLET PO SCH (09:32)
[2022-02-09] MEDS: VERAPAMIL SR 180 MG TABLET PO SCH (09:32)
[2022-02-09] MEDS: METOPROLOL SUCCINATE XL 25 MG TABLET PO SCH (09:34)
[2022-02-09] MEDS: ASCORBIC ACID 500 MG TABLET PO SCH (09:34)
[2022-02-09] MEDS: APIXABAN 5 MG TABLET PO SCH (09:34)
[2022-02-09] MEDS ORDERED: ROSUVASTATIN 10 MG TABLET PO SCH (21:00)
== END 2022-02-09 12:52 | disposition home or self-care (01) ==
LOC: N.ED 13:58 → N.EDINP 13:58 → N.TELES 16:55
PROVIDERS: ADMIT Internal Medicine Cardiovascular Disease; ATTEND Internal Medicine Cardiovascular Disease